=== PATIENT | male | born 1945 | race Caucasian/White ===

== ENCOUNTER 2022-01-17 15:21 | Inpatient (IN) | payer MEDICARE, OTHER ==
[~2022-01-17] VITALS: Ht 175.3 cm; Wt 82.2 kg
[2022-01-17 15:49] LABS: BASOPHIL 0.9 % (0-2); HCT 46.2 % (42.0-52.0); HGB 16.4 g/dl (13.2-18.0); LYMPHOCYTE 16.5 % (15-48); MCH 33.7 pg (25.0-31.0); MCHC 35.5 g/dL (32.0-36.0); MCV 94.9 fL (78.0-100.0); MONOCYTE 9.7 % (0-12); NEUTROPHIL 71.4 % (41-80); NRBC 0; RBC 4.87 M/uL (4.70-6.00); WBC 8.1 K/uL (4.0-10.5)
[2022-01-17 16:01] LABS: INR 1.15 (0.9-1.2); PROTHROMBIN TIME 14.1 SECONDS (11.8-13.4); PTT 28.1 SECONDS (24.4-34.7)
[2022-01-17 16:11] LABS: ALBUMIN 3.9 g/dL (3.4-5.0); BILIRUBIN - TOTAL 0.9 mg/dL (0.2-1.0); BUN/CREAT RATIO (CALC) 19.4 RATIO; CREATININE 0.93 mg/dL (0.67-1.17); GLOBULIN (CALCULATION) 3.8 g/dL; POTASSIUM 4.3 mmol/L (3.5-5.1); TOTAL PROTEIN 7.7 g/dL (6.4-8.2)
[2022-01-17 16:20] LABS: PLT 1 K/uL (150-400)
[2022-01-17 17:05] LABS: BILIRUBIN NEGATIVE (NEGATIVE); BLOOD 1+ Ery/uL (NEGATIVE); CLARITY CLEAR (CLEAR); COLOR YELLOW (YELLOW); GLUCOSE (U) NORMAL (NORMAL); LEUKOCYTES NEGATIVE Leu/uL (NEGATIVE); NITRITE NEGATIVE (NEGATIVE); PROTEIN NEGATIVE (NEGATIVE); UROBILINOGEN 0.2 mg/dL (0.2-1.0)
--- NOTE | 2022-01-18 05:12 | NUR ---
VITAL SIGNS WITH HUMAN GLOBIN BENADRYL 25MG PO GIVEN STARTED AT 47CC/HR 2140- b/p 149/89, P 70, R 18, T 98.1 2155- b/p 165/93, p 70, r 29 T 98.0 2210- B/P 159/95, P 71, R18, T 96.9, HYDRAZINE 10MG GIVEN IVSP ORDERED 2220- RAISED TO 98CC/HR 2225- B/P 145/85 P 72, R 16, T 97.0 2240- B/P 156/91 P 74, R 18, T 97.0 2250 B/P 182/94 P 83, R 18, 97.4 RAISED TO 147CC/HR 2305- 161/86 P 72, 20, T 97.0 0500 COMPLETED B/P 157/84,P64, R 16, T 96.8. TOLERATED INFUSION WELL.
[2022-01-18 06:21] LABS: BASOPHIL 0.2 % (0-2); EOSINOPHIL 0 % (0-7); HCT 40.5 % (42.0-52.0); HGB 14.6 g/dl (13.2-18.0); LYMPHOCYTE 5.3 % (15-48); MCV 94.2 fL (78.0-100.0); MONOCYTE 0.5 % (0-12); MPV 9.7 fL (6.0-9.5); NRBC 0; WBC 8.1 K/uL (4.0-10.5)
[2022-01-18 06:22] LABS: NEUTROPHIL 93.6 % (41-80); PLT 68 K/uL (150-400)
[2022-01-18 06:23] LABS: INR 1.26 (0.9-1.2); PROTHROMBIN TIME 15.1 SECONDS (11.8-13.4)
[2022-01-18 06:40] LABS: BUN/CREAT RATIO (CALC) 22.4 RATIO; CREATININE 0.76 mg/dL (0.67-1.17)
[2022-01-18 08:11] LABS: HIV AB/P24 AG SCREEN Non Reactive (Non Reactive)
[2022-01-19 06:40] LABS: BASOPHIL 0.2 % (0-2); EOSINOPHIL 0 % (0-7); HCT 38.5 % (42.0-52.0); HGB 13.7 g/dl (13.2-18.0); LYMPHOCYTE 2.9 % (15-48); MCH 33.4 pg (25.0-31.0); MCHC 35.6 g/dL (32.0-36.0); MCV 93.9 fL (78.0-100.0); MONOCYTE 1.1 % (0-12); MPV 10.7 fL (6.0-9.5); NRBC 0
[2022-01-19 06:41] LABS: WBC 19.7 K/uL (4.0-10.5)
[2022-01-19 06:42] LABS: PLT 85 K/uL (150-400)
[2022-01-19 06:50] LABS: INR 1.33 (0.9-1.2); PROTHROMBIN TIME 15.8 SECONDS (11.8-13.4)
[2022-01-19 07:06] LABS: ALBUMIN 3.1 g/dL (3.4-5.0); BILIRUBIN - TOTAL 0.8 mg/dL (0.2-1.0); BUN/CREAT RATIO (CALC) 28.9 RATIO; CREATININE 0.83 mg/dL (0.67-1.17); GLOBULIN (CALCULATION) 4.8 g/dL; POTASSIUM 4.5 mmol/L (3.5-5.1); TOTAL PROTEIN 7.9 g/dL (6.4-8.2)
[2022-01-19 09:06] LABS: IMMUNOGLOBULIN A, QN, SERUM 351 mg/dL (61-437); IMMUNOGLOBULIN G, QN, SERUM 915 mg/dL (603-1613); IMMUNOGLOBULIN M, QN, SERUM 260 mg/dL (15-143)
[2022-01-20 06:10] LABS: BASOPHIL 0.1 % (0-2); EOSINOPHIL 0 % (0-7); HCT 37.5 % (42.0-52.0); HGB 13.3 g/dl (13.2-18.0); LYMPHOCYTE 3.2 % (15-48); MCH 33.4 pg (25.0-31.0); MCHC 35.5 g/dL (32.0-36.0); MCV 94.2 fL (78.0-100.0); MPV 10.5 fL (6.0-9.5); NRBC 0; PLT 100 K/uL (150-400); RBC 3.98 M/uL (4.70-6.00); WBC 17.3 K/uL (4.0-10.5)
[2022-01-20 06:14] LABS: INR 1.28 (0.9-1.2); PROTHROMBIN TIME 15.3 SECONDS (11.8-13.4)
[2022-01-20 06:21] LABS: NEUTROPHIL 94.7 % (41-80)
[2022-01-20 06:25] LABS: BUN/CREAT RATIO (CALC) 34.5 RATIO; CREATININE 0.84 mg/dL (0.67-1.17); POTASSIUM 4.5 mmol/L (3.5-5.1)
[2022-01-20 16:07] LABS: A/G RATIO 1.2 (0.7-1.7); ALBUMIN 3.7 g/dL (2.9-4.4); ALPHA-1-GLOBULIN 0.3 g/dL (0.0-0.4); ALPHA-2-GLOBULIN 0.7 g/dL (0.4-1.0); GAMMA GLOBULIN 1.1 g/dL (0.4-1.8); GLOBULIN, TOTAL 3.1 g/dL (2.2-3.9); M-SPIKE Not Observed g/dL (Not Observed); PROTEIN, TOTAL, SERUM 6.8 g/dL (6.0-8.5)
== END 2022-01-20 10:20 | disposition home or self-care (01) | DRG 813 ==
LOC: FER 15:21 → FMS 17:15
PROVIDERS: Emergency Medicine; ADMIT Allergy & Immunology Allergy
PROC: 30233R1 Transfusion of Nonautologous Platelets into Peripheral Vein, Percutaneous Approach (ICD-10-PCS; principal; 2022-01-18)
DX: D69.3 Immune thrombocytopenic purpura (principal); Z20.822 Contact with and (suspected) exposure to COVID-19; M89.9 Disorder of bone, unspecified; K12.1 Other forms of stomatitis; K21.9 Gastro-esophageal reflux disease without esophagitis; I10 Essential (primary) hypertension; M19.90 Unspecified osteoarthritis, unspecified site; Z90.49 Acquired absence of other specified parts of digestive tract
CPT/HCPCS: 36415; 36430; 70450; 71045; 71260; 80048; 80053; 81001; 82784; 83615; 83883; 84145; 84155; 84165; 85025; 85610; 85730; 86038; 87389; J0360; J1568; J2930; J7050; P9035; Q9967; U0002